=== PATIENT | female | born 1945 | race Caucasian/White ===

== ENCOUNTER 2016-09-21 10:50 | Outpatient (CLI) | payer MEDICARE, OTHER | END 2016-09-21 10:51 | disposition home or self-care (01) | LOC: LABLEX 10:50 | PROVIDERS: ATTEND Family Medicine | DX: M81.0 Age-related osteoporosis without current pathological fracture (principal) | CPT/HCPCS: 82306 ==

== ENCOUNTER 2017-03-18 10:47 | Emergency (ER) | payer MEDICARE ==
[2017-03-18 11:42] LABS: #Eosinphils 0.1 thou/uL (0.0-0.7); #Lymphocytes 1.2 thou/uL (1.20-3.40); #Monocytes 0.3 thou/uL (0.11-0.59); #Neutrophils 11.4 thou/uL (1.40-6.50); %Basophils 0.3 % (0.0-1.0); %Eosinophils 0.5 % (0.0-10.0); %Lymphocytes 8.9 % (21.0-51.0); %Monocytes 2.1 % (0.0-10.0); %Neutrophils 88.3 % (42.0-75.0); Hemoglobin 15.9 g/dL (12.0-16.0); Mean Corpuscular HGB CONC 35.6 g/dL (32.0-36.0); Mean Corpuscular Hemoglobin 30.1 pg (27.0-31.0); Mean Corpuscular Volume 84.6 fl (81.0-99.0); Platelet Count 194 thou/uL (130-400); RBC Distribution Width 11.6 % (11.5-14.5); Red Blood Cell (RBC) Count 5.26 mill/uL (4.20-5.40)
[2017-03-18 11:54] LABS: ALT (SGPT) 21 U/L (8-55); AST (SGOT) 21 U/L (5-34); Albumin 4.5 g/dL (3.4-4.8); Alkaline Phosphatase 47 U/L (40-150); Anion Gap 17 mmol/L (10-20); BUN (Urea Nitrogen) 12 mg/dL (9.8-20.1); Bilirubin, Total 0.7 mg/dL (0.2-1.2); Calc. Creatinine Clearance 0 mL/min (70-130); Calcium 11.1 mg/dL (7.8-10.44); Carbon Dioxide 25 mmol/L (23-31); Chloride 105 mmol/L (98-107); Estimated GFR-MDRD 68; Globulin 2.9 g/dL (2.4-3.5); Glucose 126 mg/dL (83-110); Potassium 4.5 mmol/L (3.5-5.1); Protein, Total 7.4 g/dL (6.0-8.3); Sodium 142 mmol/L (136-145)
[2017-03-18 11:57] LABS: Bilirubin Negative (Negative); Blood, Urine Large (Negative); Clarity Cloudy (Clear); Glucose, Urine (Dipstick) Negative (Negative); Leukocyte Trace (Negative); Nitrite Negative (Negative); Protein, Urine (Dipstick) 30 mg/dL (Neg-Trace); Urobilinogen 0.2 mg/dL (0.2-1.0)
[2017-03-18 12:06] LABS: Bacteria/HPF 1+ HPF (None Seen); RBC/HPF GREATER THAN 50-TNTC HPF (0-3); Squamous Epithelial 0-3 HPF (0-3)
--- NOTE | 2017-03-18 12:12 | CT ---
CT ABDOMEN AND PELVIS WITHOUT CONTRAST: Date: 03-18-17 Technique: Spiral CT of the abdomen and pelvis was performed without IV contrast for evaluation of le ft niru and left lower quadrant pain. Axial slices were acquired and then coronal reconstructions we re done. Sagittal reconstructions were available as well. FINDINGS: There is a 5 x 3 mm distal left ureteral calculus that is causing mild left hydronephrosis. This is l ocated near the bottom of the left SI joint on top of the acetabulum. The kidneys otherwise did not s how any signs of renal calculi. No renal masses were seen. The remainder of the scan was unremarkable. The lung bases are clear. The liver, spleen, pancreas, ad renal glands, gallbladder, and abdominal aorta showed no acute changes. The bowel is not distended an d there is no bowel wall thickening or inflammatory change around bowel. There was no evidence of div erticulitis, free air, or free fluid. CT of the pelvis was remarkable mainly for the left ureteral ca lculus. There were no pelvic masses or inflammatory changes. Degenerative changes are present in the patient's lumbar spine. Degenerative disc disease is present at L5-S1. There is mild spondylolisthesi s of L4 on L5 due to facet arthritis. A chip is seen off the anterior superior corner of L3, obviousl y long-standing. IMPRESSION: 5 x 3 mm distal left ureteral calculus several centimeters short of the UV junction causing mild left hydronephrosis. POS: [facility]
[2017-03-18] MEDS ORDERED: Ketorolac Tromethamine 30 MG/ML VIAL ONE (12:25)
== END 2017-03-18 12:35 | disposition home or self-care (01) ==
LOC: BURERS 10:47
DX: N13.2 Hydronephrosis with renal and ureteral calculous obstruction (principal); J45.909 Unspecified asthma, uncomplicated
CPT/HCPCS: 51701; 74176; 80053; 81003; 81015; 85025; 96374; A4353; J1885